=== PATIENT | female | born 1990 | race Hispanic/Latino ===

== ENCOUNTER 2021-05-29 18:00 | Inpatient (IN) | payer MEDICAID, OTHER, SELFPAY ==
[2021-05-29] MEDS ORDERED: Promethazine HCl 25 MG/ML VIAL IM PRN (22:24)
[2021-05-29] MEDS ORDERED: Butorphanol Tartrate 1 MG/ML VIAL SLOW IVP PRN (22:24)
[2021-05-29] MEDS ORDERED: Acetaminophen 500 MG TAB PO PRN (22:24)
[2021-05-29] MEDS ORDERED: Ondansetron PF 4 MG/2 ML Vial IVP PRN (22:24)
[2021-05-29] MEDS ORDERED: hydrALAZINE 20 MG/ML VIAL SLOW IVP PRN (22:24)
[2021-05-29] MEDS ORDERED: Lidocaine 1% (PF) 30 ML VIAL SC PRN (22:33)
[2021-05-29] MEDS ORDERED: Methylergonovine 0.2 MG/ML VIAL IM PRN (22:33)
[2021-05-29] MEDS ORDERED: Misoprostol 200 MCG TAB PR PRN (22:33)
[2021-05-29] MEDS ORDERED: Ibuprofen 800 MG TAB PO PRN (22:33)
[2021-05-29] MEDS ORDERED: Carboprost 250 MCG/ML AMP IM PRN (22:33)
[2021-05-29] MEDS ORDERED: NS w/ Oxytocin 30 units 500 ML IVPB SCH (22:45)
[2021-05-29] MEDS ORDERED: NS w/ Oxytocin 30 units 500 ML IV SCH (22:45)
[2021-05-29] MEDS: Lactated Ringer's 1,000 ML IV SCH (23:20)
[2021-05-29 23:37] LABS: Hemoglobin 11.2 g/dL (12.0-15.5); Mean Corpuscular HGB CONC 32.4 g/dL (32.0-36.0); Mean Corpuscular Hemoglobin 26.9 pg (27.0-33.0); Mean Platelet Volume 9.9 fl (7.4-10.4); Platelet Count 209 10x3/uL (150-450); RBC Distribution Width 15.5 % (11.5-14.5); Red Blood Cell (RBC) Count 4.17 10x6/uL (3.90-5.03); White Blood Cell (WBC) Count 8.4 10x3/uL (3.5-10.5)
[2021-05-29 23:41] VITALS: BMI 29.8
[2021-05-29 23:42] LABS: Glucose 119 mg/dL (70-105)
[2021-05-30 00:08] LABS: Hep B Surf Ag Non-Reactive S/CO (NonReactive); Syphilis Antibody Nonreactive (Nonreactive); Syphilis Antibody Index 0.05 S/CO (<1.00 Non-Reactive)
[2021-05-30 00:43] LABS: HBSAg Index 0.17 S/CO (0-0.99)
[2021-05-30] MEDS: Misoprostol 100 MCG TAB VAG SCH ×5 (04:18→13:53)
[2021-05-30] MEDS ORDERED: Fentanyl 2 mcg/Bup 0.1% Cadd 100 ML ONE (10:10)
[2021-05-30] MEDS ORDERED: Misoprostol 200 MCG TAB ONE (10:19)
[2021-05-30] MEDS ORDERED: Methylergonovine 0.2 MG/ML VIAL ONE (10:19)
[2021-05-30] MEDS ORDERED: Carboprost 250 MCG/ML AMP ONE (10:19)
[2021-05-30] MEDS ORDERED: Methylergonovine 0.2 MG/ML VIAL IM PRN (13:34)
[2021-05-30] MEDS ORDERED: Ondansetron PF 4 MG/2 ML Vial IVP PRN (13:34)
[2021-05-30] MEDS ORDERED: Misoprostol 200 MCG TAB VAG PRN (13:34)
[2021-05-30] MEDS ORDERED: NS w/ Oxytocin 30 units 500 ML IV SCH (13:34)
[2021-05-30] MEDS ORDERED: hydrALAZINE 20 MG/ML VIAL SLOW IVP PRN (13:34)
[2021-05-30] MEDS ORDERED: Lanolin Ointment 7 GM TUBE TOP PRN (13:34)
[2021-05-30] MEDS ORDERED: Milk Of Magnesia 30 ML UDCUP PO PRN (13:34)
[2021-05-30] MEDS ORDERED: Preparation H Ointment 28 GM TUBE PR PRN (13:34)
[2021-05-30] MEDS ORDERED: Bisacodyl 10 MG SUPP PR PRN (13:34)
[2021-05-30] MEDS ORDERED: diphenhydrAMINE 25 MG CAP PO PRN (13:34)
[2021-05-30] MEDS: Lactated Ringer's 1,000 ML IV SCH (13:51)
[2021-05-30] MEDS: Ibuprofen 800 MG TAB PO SCH ×2 (14:25→21:53)
[2021-05-30] MEDS: Ferrous Sulfate 325 MG TAB PO SCH (17:27)
[2021-05-30] MEDS: Docusate Calcium (SURFAK) 240 MG CAP PO SCH (21:54)
[2021-05-31] MEDS: Ibuprofen 800 MG TAB PO SCH ×2 (06:21→14:57)
[2021-05-31 06:31] VITALS: TEMP 97.8
[2021-05-31 07:56] VITALS: BP 115/57
[2021-05-31] MEDS: Ferrous Sulfate 325 MG TAB PO SCH (08:33)
[2021-05-31] MEDS ORDERED: Prenatal Vitamin 1 TAB PO SCH (09:00)
[2021-05-31] MEDS: Docusate Calcium (SURFAK) 240 MG CAP PO SCH (09:27)
[2021-05-31] MEDS ORDERED: Boostrix 0.5 ML (Tdap) VIAL IM ONE (13:34)
[2021-05-31] MEDS ORDERED: FLU VACC QS2021-22(6MOS UP)/PF 60 MCG/0.5 ML SYRINGE IM ONE (15:02)
== END 2021-05-31 17:37 | disposition home or self-care (01) | DRG 807 ==
LOC: CSHLD 22:10 → CSHPED 05-30 13:20
PROVIDERS: ADMIT Family Medicine; ATTEND Family Medicine
PROC: 3E033VJ Introduction of Other Hormone into Peripheral Vein, Percutaneous Approach (ICD-10-PCS; principal; 2021-05-30)
PROC: 10E0XZZ Delivery of Products of Conception, External Approach (ICD-10-PCS; 2021-05-30)
PROC: 0KQM0ZZ Repair Perineum Muscle, Open Approach (ICD-10-PCS; 2021-05-30)
PROC: 10907ZC Drainage of Amniotic Fluid, Therapeutic from Products of Conception, Via Natural or Artificial Opening (ICD-10-PCS; 2021-05-30)
DX: O24.420 Gestational diabetes mellitus in childbirth, diet controlled (principal); Z37.0 Single live birth; O70.1 Second degree perineal laceration during delivery; Z3A.39 39 weeks gestation of pregnancy
CPT/HCPCS: 36415; 36416; 82947; 85027; 86780; 86850; 86900; 86901; 87340; J2001; J2590; J7120

== ENCOUNTER 2022-04-11 11:25 | Emergency (ER) | payer MEDICAID, OTHER, SELFPAY ==
[2022-04-11 12:32] LABS: #Eosinphils 0.2 10x3/uL (0.0-0.5); #Monocytes 0.3 10x3/uL (0.0-1.1); #Neutrophils 4.9 10x3/uL (1.5-8.4); %Basophils 0.3 % (0.0-2.0); %Eosinophils 2.3 % (0.0-6.0); %Lymphocytes 23.5 % (18.0-47.0); %Monocytes 4.5 % (0.0-10.0); %Neutrophils 69.3 % (40.0-75.0); Hemoglobin 12.3 g/dL (12.0-15.5); Mean Corpuscular HGB CONC 34.2 g/dL (32.0-36.0); Mean Corpuscular Hemoglobin 30.2 pg (27.0-33.0); Mean Corpuscular Volume 88.5 fl (81.6-98.3); Mean Platelet Volume 9.9 fl (7.4-10.4); Platelet Count 213 10x3/uL (150-450); RBC Distribution Width 12.9 % (11.5-14.5); Red Blood Cell (RBC) Count 4.07 10x6/uL (3.90-5.03); White Blood Cell (WBC) Count 7.1 10x3/uL (3.5-10.5)
[2022-04-11 12:57] LABS: Bilirubin Neg (Negative); Blood, Urine 150 (Negative); Clarity Clear (Clear); Glucose, Urine (Dipstick) Normal (Negative); Ketone, Urine Negative (Negative); Leukocyte 25 (Negative); Nitrite Negative (Negative); Protein, Urine (Dipstick) Negative (Neg-Trace); pH, Urine 6.5 (5.0-9.0)
[2022-04-11 13:06] LABS: Bacteria/HPF 1+ HPF (None Seen); RBC/HPF 0-3 HPF (0-3); Squamous Epithelial 0-3 HPF (0-3); WBC/HPF 0-3 HPF (0-3)
== END 2022-04-11 15:25 | disposition home or self-care (01) ==
LOC: CSHERS 11:25
DX: O20.0 Threatened abortion (principal); Z3A.16 16 weeks gestation of pregnancy
CPT/HCPCS: 36415; 76815; 81003; 81015; 84702; 85025; 86900; 86901

== ENCOUNTER 2022-09-14 05:30 | Inpatient (IN) | payer MEDICAID, OTHER, SELFPAY ==
[2022-09-14 07:40] VITALS: BMI 29.4
[2022-09-14] MEDS ORDERED: Bupivacaine 0.25% HCL 30 ML VIAL ONE (08:00)
[2022-09-14] MEDS ORDERED: hydrALAZINE 20 MG/ML VIAL SLOW IVP PRN (08:48)
[2022-09-14] MEDS ORDERED: Methylergonovine 0.2 MG/ML VIAL IM PRN (08:48)
[2022-09-14] MEDS ORDERED: Carboprost 250 MCG/ML AMP IM PRN (08:48)
[2022-09-14] MEDS ORDERED: Misoprostol 200 MCG TAB PR PRN (08:48)
[2022-09-14] MEDS ORDERED: Lidocaine 1% (PF) 30 ML VIAL SC PRN (08:48)
[2022-09-14] MEDS ORDERED: Ondansetron PF 4 MG/2 ML Vial IVP PRN ×2 (08:48→20:12)
[2022-09-14] MEDS ORDERED: Acetaminophen 500 MG TAB PO PRN (08:48)
[2022-09-14] MEDS ORDERED: Ibuprofen 800 MG TAB PO PRN (08:48)
[2022-09-14] MEDS ORDERED: Diphenoxylate HCl/Atropine Tablet PO PRN ×2 (08:48)
[2022-09-14] MEDS ORDERED: Promethazine HCl 25 MG/ML VIAL IM PRN ×2 (08:48→20:12)
[2022-09-14] MEDS ORDERED: NS w/ Oxytocin 30 units 500 ML IV SCH ×2 (09:00)
[2022-09-14 09:08] LABS: Mean Corpuscular HGB CONC 33.1 g/dL (32.0-36.0); Mean Corpuscular Hemoglobin 27.8 pg (27.0-33.0); Mean Corpuscular Volume 84.1 fl (81.6-98.3); Mean Platelet Volume 10.2 fl (7.4-10.4); Platelet Count 237 10x3/uL (150-450); RBC Distribution Width 14.8 % (11.5-14.5); Red Blood Cell (RBC) Count 3.95 10x6/uL (3.90-5.03); White Blood Cell (WBC) Count 8.6 10x3/uL (3.5-10.5)
[2022-09-14 09:35] LABS: Syphilis Antibody Nonreactive (Nonreactive); Syphilis Antibody Index 0.03 S/CO (<1.00 Non-Reactive)
[2022-09-14 09:36] LABS: HBSAg Index 0.14 S/CO (0-0.99); Hep B Surf Ag Non-Reactive S/CO (NonReactive)
[2022-09-14 09:37] LABS: SARS-CoV-2 NAA Rapid Test Not Detected (NotDetected)
[2022-09-14] MEDS ORDERED: Fentanyl 2 mcg/Bup 0.1% Cadd 100 ML ONE (19:25)
[2022-09-14] MEDS ORDERED: Lactated Ringer's 500 ML IV PRN (20:12)
[2022-09-14] MEDS ORDERED: Acetaminophen 325 MG TAB PO PRN (20:12)
[2022-09-14] MEDS ORDERED: Naloxone HCl 0.4 mg/ml Vial IVP PRN ×2 (20:12)
[2022-09-14] MEDS ORDERED: diphenhydrAMINE 50 MG/ML VIAL IVP PRN (20:12)
[2022-09-14] MEDS ORDERED: Moisturizing Cream (Eucerin) 113 GM JAR TOP PRN (20:12)
[2022-09-14] MEDS ORDERED: ePHEDrine Sulfate 50 MG/10 ML VIAL SLOW IVP PRN (20:12)
[2022-09-14] MEDS ORDERED: Communication Order-Pharmacy FS SCH (20:15)
[2022-09-14] MEDS ORDERED: Fentanyl 2 mcg/Bupivacaine 0.1% Cassette 100 ML EPIDURAL SCH (20:15)
[2022-09-15] MEDS ORDERED: Boostrix 0.5 ML (Tdap) VIAL (>/=7 yrs of age) IM ONE (04:55)
[2022-09-15] MEDS ORDERED: Preparation H Ointment 28 GM TUBE PR PRN (04:55)
[2022-09-15] MEDS ORDERED: Lanolin Ointment 7 GM TUBE TOP PRN (04:55)
[2022-09-15] MEDS ORDERED: Benzocaine-Menthol 82.5 ML CAN TOP PRN (04:55)
[2022-09-15] MEDS ORDERED: diphenhydrAMINE 25 MG CAP PO PRN (04:55)
[2022-09-15] MEDS ORDERED: hydrALAZINE 20 MG/ML VIAL SLOW IVP PRN (04:55)
[2022-09-15] MEDS ORDERED: Bisacodyl 10 MG SUPP PR PRN (04:55)
[2022-09-15] MEDS ORDERED: Milk Of Magnesia 30 ML UDCUP PO PRN (04:55)
[2022-09-15] MEDS ORDERED: NS w/ Oxytocin 30 units 500 ML IV SCH (05:00)
[2022-09-15] MEDS: Ibuprofen 800 MG TAB PO SCH ×3 (05:16→21:26)
[2022-09-15] MEDS: Ferrous Sulfate 325 MG TAB PO SCH ×2 (09:46→19:05)
[2022-09-15] MEDS: Prenatal Vitamin 1 TAB PO SCH (10:29)
[2022-09-15] MEDS: Docusate 100 MG CAP PO SCH ×2 (10:29→21:26)
[2022-09-16] MEDS: Ibuprofen 800 MG TAB PO SCH (05:06)
[2022-09-16 07:36] VITALS: BP 108/64; TEMP 97.8
[2022-09-16] MEDS: Docusate 100 MG CAP PO SCH (09:57)
[2022-09-16] MEDS: Prenatal Vitamin 1 TAB PO SCH (09:57)
== END 2022-09-16 13:55 | disposition home or self-care (01) | DRG 807 ==
LOC: CSHLD 06:54 → CSHPP 09-15 09:30
PROVIDERS: ADMIT Family Medicine; ATTEND Family Medicine
PROC: 10907ZC Drainage of Amniotic Fluid, Therapeutic from Products of Conception, Via Natural or Artificial Opening (ICD-10-PCS; 2022-09-14)
PROC: 3E0P7VZ Introduction of Hormone into Female Reproductive, Via Natural or Artificial Opening (ICD-10-PCS; 2022-09-14)
PROC: 10H07YZ Insertion of Other Device into Products of Conception, Via Natural or Artificial Opening (ICD-10-PCS; 2022-09-14)
PROC: 10E0XZZ Delivery of Products of Conception, External Approach (ICD-10-PCS; principal; 2022-09-15)
PROC: 0HQ9XZZ Repair Perineum Skin, External Approach (ICD-10-PCS; 2022-09-15)
DX: O24.420 Gestational diabetes mellitus in childbirth, diet controlled (principal); Z37.0 Single live birth; O70.0 First degree perineal laceration during delivery; D64.9 Anemia, unspecified; O99.02 Anemia complicating childbirth; O43.113 Circumvallate placenta, third trimester; O69.81X0 Labor and delivery complicated by cord around neck, without compression, not applicable or unspecified; Z20.822 Contact with and (suspected) exposure to COVID-19; Z98.890 Other specified postprocedural states; Z79.82 Long term (current) use of aspirin; Z3A.39 39 weeks gestation of pregnancy
CPT/HCPCS: 36416; 51702; 85027; 86780; 86850; 86900; 86901; 87340; J2590; S0020; U0002